=== PATIENT | male | born 1990 | race Caucasian/White ===

== ENCOUNTER 2023-09-17 00:24 | Emergency (ER) | payer OTHER ==
[~2023-09-17] VITALS: Ht 170.2 cm; Wt 72.0 kg
[2023-09-17 00:41] VITALS: BP 139/90; TEMP 97.8; O2SAT 97
[2023-09-17 00:58] VITALS: PULSE 114; RESP 20
[2023-09-17] MEDS ORDERED: HYDROCODONE/ACETAMINOPHEN 5/325MG TABLET PO STA (01:25)
[2023-09-17 01:53] LABS: CALCIUM 8.8 mg/dL (8.7-10.4); CREATININE 1.6 mg/dL (0.6-1.3); POTASSIUM 3.7 mEq/L (3.5-5.1)
[2023-09-17] MEDS ORDERED: LIDOCAINE HCL/PF 1% 10 MG/ML 5ML VIAL INFIL ONE (02:30)
== END 2023-09-17 06:57 | disposition left against medical advice (07) ==
LOC: ER 00:24
DX: S63.260A Dislocation of metacarpophalangeal joint of right index finger, initial encounter (principal); S00.81XA Abrasion of other part of head, initial encounter; F12.90 Cannabis use, unspecified, uncomplicated; F17.200 Nicotine dependence, unspecified, uncomplicated; R51.9 Headache, unspecified; Y04.0XXA Assault by unarmed brawl or fight, initial encounter; Y93.89 Activity, other specified; Y92.89 Other specified places as the place of occurrence of the external cause; Y99.8 Other external cause status
CPT/HCPCS: 80048; 36415; 73130; 70450; 70486; 26700; 99284; J3490; Z7610